=== PATIENT | female | born 1980 | race Caucasian/White ===

== ENCOUNTER 2018-04-13 07:39 | Emergency (ER) | payer OTHER ==
[~2018-04-13] VITALS: Ht 167.6 cm; Wt 69.7 kg
[~2018-04-13 07:39] MED LIST: BCPILLS PO
[2018-04-13 07:40] VITALS: TEMP 36.8; Ht 167.6 cm; Wt 69.7 kg
[2018-04-13] MEDS ORDERED: SODIUM CHLORIDE 0.9% 1000ML 1,000 ML IV STA (07:49)
[2018-04-13] MEDS ORDERED: SODIUM CHLORIDE 0.9% 500ML 500 ML IV STA (07:49)
[2018-04-13 08:19] LABS: BASO % 0.7 %; BASO ABS # 0.03 K/uL (0-0.2); EOS % 0.5 %; EOS ABS # 0.02 K/uL (0-0.5); IG# 0.01 K/uL (0.00-0.02); LYMPH % 35.3 %; MEAN CORPUSCULAR HEMOGLOBIN 29.4 pg (25-34); MEAN CORPUSCULAR HGB CONC 34.2 g/dl (32-36); MONO % 10.6 %; MONO ABS # 0.45 K/uL (0.11-0.59); NEUT % 52.7 %; NEUT ABS # 2.24 K/uL (1.4-6.5); PLATELET COUNT 215 K/uL (130-400); RED CELL DISTRIBUTION WIDTH CV 13.2 % (11.5-14.5); RED CELL DISTRIBUTION WIDTH SD 41.6 fL (36.4-46.3); WHITE BLOOD COUNT 4.25 K/uL (4.8-10.8)
--- NOTE | 2018-04-13 08:24 | EMERGENCY ROOM VISIT NOTE ---
History Report prepared by Mushtaq: Mitchell Jara Under the Supervision of: Dr. Allison Jimenez M.D. First contact with patient: 07:48 Chief Complaint: TACHYCARDIA Stated Complaint: RACING HEART History of Present Illness The patient is a 37 year old female who presents to the Emergency Room with complaints of intermittent tachycardic heart rates and palpitations that she has been experiencing for the past 3 months. The patient describes her palpitations as her heart "flip flopping" in her chest. The patient notes that this morning her heart rate was 120+ while she was at rest. This morning she also felt lightheaded, dizzy, and "hot" when her heart was racing. She denies any alcohol use. The patient did note that she was started on a thyroid medication a few months ago, which she stopped 4 weeks ago. She thought the thyroid medication could be causing the palpitations, but since stopping the medication there has not been any change. She stopped taking her control this month due to insurance issues. Source of History: patient Onset: 3 months Position: chest Quality: other (palpitations) Timing: intermittent Associated Symptoms: + fevers, + diaphoresis (Dizzy/lightheaded) Review of Systems See HPI for pertinent positives & negatives. A total of 10 systems reviewed and were otherwise negative. Past Medical & Surgical Medical Problems: (1) ANXIETY STATE NOS (2) Appendectomy (3) DEPRESS DISORDER-UNSPEC (4) FAM HX-DIABETES MELLITUS (5) FAM HX-OTH KIDNEY DISEASES (6) FAMILY HISTORY OF OTHER CARDIOVASCULAR DISEASES (7) FAMILY HISTORY OF OTHER CARDIOVASCULAR DISEASES (8) FAMILY HX-CONDITION NEC (9) FAMILY HX-MALIGNANCY NOS (10) IRON DEFIC ANEMIA NOS (11) PAP SMEAR CERV W ATYP SQUAMOUS CELLS OF UNDET SIGNIF ASC-US Family History Cancer Diabetes mellitus Heart disease Hypertension Lung disease Social History Smoking Status: Former Smoker Alcohol Use: none Drug Use: none Marital Status: single Housing Status: lives with family Occupation Status: unemployed Current/Historical Medications Scheduled Probiotic Product (Probiotic), 1 TAB PO DAILY Scheduled PRN Cyclobenzaprine Hcl (Flexeril), 10 MG PO UD PRN for Muscle Spasms Allergies Coded Allergies: Sulfamethoxazole w/Trimethoprim (Unverified Allergy, Severe, THRUSH IN MOUTH, 04/13/18) Physical Exam Vital Signs Date Time Temp Pulse Resp B/P (MAP) Pulse Ox O2 Delivery O2 Flow Rate FiO2 04/13/18 10:15 86 16 126/70 98 04/13/18 09:24 76 16 97 Room Air 04/13/18 08:48 92 18 124/75 98 Room Air 04/13/18 08:01 91 04/13/18 07:57 Room Air 04/13/18 07:57 Room Air 04/13/18 07:53 97 18 147/91 98 Room Air 04/13/18 07:40 36.8 111 18 134/77 100 Room Air Physical Exam Vital signs reviewed. General: Well-appearing young female, in no significant distress. HEENT: No scleral icterus, PERRLA, neck supple. Atraumatic. Cardiovascular: Regular rate and rhythm, no extra sounds. Pulmonary: Clear to auscultation bilaterally, normal work of breathing. Abdomen: Soft, nontender, nondistended, positive bowel sounds. Musculoskeletal: Atraumatic, no peripheral edema. Neurologic: Patient awake alert and oriented x 3. Skin: Warm, dry, no rash Medical Decision & Procedures ER Provider Diagnostic Interpretation: Radiology results as stated below per my review and radiologist interpretation: CHEST ONE VIEW PORTABLE HISTORY: tachycardia COMPARISON: Chest 09/01/2011. FINDINGS: The lungs are clear. Cardiac silhouette is normal in size. No pleural effusions. No pneumothorax. IMPRESSION: No acute process. Electronically signed by: Lionel Garcia M.D. 04/13/2018 8:32 AM Dictated Date/Time: 04/13/2018 8:28 AM Laboratory Results 04/13/18 08:05 Red Blood Count 4.42, Mean Corpuscular Volume 86.0, Mean Corpuscular Hemoglobin 29.4, Mean Corpuscular Hemoglobin Concent 34.2, Mean Platelet Volume 9.0, Neutrophils (%) (Auto) 52.7, Lymphocytes (%) (Auto) 35.3, Monocytes (%) (Auto) 10.6, Eosinophils (%) (Auto) 0.5, Basophils (%) (Auto) 0.7, Neutrophils # (Auto ) 2.24, Lymphocytes # (Auto) 1.50, Monocytes # (Auto) 0.45, Eosinophils # (Auto ) 0.02, Basophils # (Auto) 0.03 04/13/18 08:05 Test 04/13/18 08:05 04/13/18 08:14 White Blood Count 4.25 K/uL (4.8-10.8) Red Blood Count 4.42 M/uL (4.2-5.4) Hemoglobin 13.0 g/dL (12.0-16.0) Hematocrit 38.0 % (37-47) Mean Corpuscular Volume 86.0 fL (80-100) Mean Corpuscular Hemoglobin 29.4 pg (25-34) Mean Corpuscular Hemoglobin Concent 34.2 g/dl (32-36) Platelet Count 215 K/uL (130-400) Mean Platelet Volume 9.0 fL (7.4-10.4) Neutrophils (%) (Auto) 52.7 % Lymphocytes (%) (Auto) 35.3 % Monocytes (%) (Auto) 10.6 % Eosinophils (%) (Auto) 0.5 % Basophils (%) (Auto) 0.7 % Neutrophils # (Auto) 2.24 K/uL (1.4-6.5) Lymphocytes # (Auto) 1.50 K/uL (1.2-3.4) Monocytes # (Auto) 0.45 K/uL (0.11-0.59) Eosinophils # (Auto) 0.02 K/uL (0-0.5) Basophils # (Auto) 0.03 K/uL (0-0.2) RDW Standard Deviation 41.6 fL (36.4-46.3) RDW Coefficient of Variation 13.2 % (11.5-14.5) Immature Granulocyte % (Auto) 0.2 % Immature Granulocyte # (Auto) 0.01 K/uL (0.00-0.02) Anion Gap 4.0 mmol/L (3-11) Est Creatinine Clear Calc Drug Dose 85.8 ml/min Estimated GFR () 102.9 Estimated GFR (Non- 88.8 BUN/Creatinine Ratio 11.7 (10-20) Calcium Level 8.6 mg/dl (8.5-10.1) Magnesium Level 1.8 mg/dl (1.8-2.4) Total Bilirubin 0.6 mg/dl (0.2-1) Direct Bilirubin 0.2 mg/dl (0-0.2) Aspartate Amino Transf (AST/SGOT) 19 U/L (15-37) Alanine Aminotransferase (ALT/SGPT) 20 U/L (12-78) Alkaline Phosphatase 75 U/L (45-117) Total Protein 7.3 gm/dl (6.4-8.2) Albumin 3.6 gm/dl (3.4-5.0) Thyroid Stimulating Hormone (TSH) 4.020 uIu/ml (0.300-4.500) Free Thyroxine 1.05 ng/dl (0.80-1.60) Free Triiodothyronine 3.48 pg/ml (2.30-4.20) Bedside D-Dimer 188 ng/mlFEU (0-450) Laboratory results per my review. Medications Administered Medications (Trade) Dose Ordered Sig/Jeff Route Start Time Stop Time Status Last Admin Dose Admin Sodium Chloride 500 ml @ 999 mls/hr Q31M STAT IV 04/13/18 07:49 04/13/18 08:19 DC 04/13/18 08:08 999 MLS/HR ECG Per My Interpretation Indication: palpitations, tachycardia Rate (beats per minute): 98 Rhythm: sinus rhythm Findings: PAC, other (Possible previous anterior infarct, no BETTIE/STD) ED Course 0757: Past medical records reviewed. The patient was evaluated in room A2. A complete history and physical examination was performed. 0749: Ordered Sodium Chloride 1000 ml @ 150 mls/hr IV, Sodium Chloride 500 ml @ 999 mls/hr IV 1005; Upon reevaluation, the patient appeared to have improvement of her symptoms. I discussed findings with her. She verbalized agreement of the treatment plan. The patient was discharged home. Medical Decision Differential diagnosis: Etiologies such as premature contractions, electrolyte abnormality, cardiac dysrhythmia, thyroid dysfunction, pulmonary embolism, infection, gastrointestinal, as well as others were entertained. This patient was evaluated and appeared to be in no significant distress. The patient has a slight tachycardia just above 100 bpm periodically. IV access was obtained and laboratory work was drawn. Patient was hydrated with normal saline solution. She denies stimulant use. There is no ectopy or significant arrhythmia to explain the rapid rate the patient experienced earlier. Patient' s laboratory work is fairly unrevealing, there is no evidence of electrolyte or metabolic derangement. As this has been recurrent for some time, the patient was prescribed a Holter monitor for outpatient use. The results will be sent to her primary care, she will follow up with her physician within the next 1-2 weeks. Patient will return to the emergency department for worsening of symptoms or any medical concerns. Medication Reconcilliation Current Medication List: was personally reviewed by me Blood Pressure Screening Patient's blood pressure: Normal blood pressure Impression Primary Impression: Tachyarrhythmia Scribe Attestation The scribe's documentation has been prepared under my direction and personally reviewed by me in its entirety. I confirm that the note above accurately reflects all work, treatment, procedures, and medical decision making performed by me. Departure Information Dispostion Home / Self-Care Referrals No Doctor, Assigned (PCP) Forms HOME CARE DOCUMENTATION FORM, IMPORTANT VISIT INFORMATION, WORK / SCHOOL INSTRUCTIONS Patient Instructions My [facility] Additional Instructions Diagnosis: Tachyarrhythmia Please go to the cardiopulmonary lab after discharged for your Holter monitor. Follow-up with Dr. Landis within the next 7-10 days for reevaluation. Drink plenty of clear fluids. Avoid excessive stimulants such as caffeine per Return to the emergency department for worsening of symptoms or any medical concerns.
--- NOTE | 2018-04-13 08:34 | DIAGNOSTIC IMAGING REPORT ---
CHEST ONE VIEW PORTABLE HISTORY: tachycardia COMPARISON: Chest 09/01/2011. FINDINGS: The lungs are clear. Cardiac silhouette is normal in size. No pleural effusions. No pneumothorax. IMPRESSION: No acute process. Electronically signed by: Lionel Garcia M.D. 04/13/2018 8:32 AM Dictated Date/Time: 04/13/2018 8:28 AM
[2018-04-13 08:40] LABS: ALBUMIN 3.6 gm/dl (3.4-5.0); CALCIUM 8.6 mg/dl (8.5-10.1); CREATININE 0.84 mg/dl (0.60-1.20); POTASSIUM 3.8 mmol/L (3.5-5.1); TOTAL PROTEIN 7.3 gm/dl (6.4-8.2)
[2018-04-13] MEDS ORDERED: CYCL10TA6 PO (09:02)
[2018-04-13] MEDS ORDERED: PROB1TAB16 PO (09:02)
[2018-04-13 10:15] VITALS: BP 126/70; PULSE 86; O2SAT 98
== END 2018-04-13 10:35 | disposition home or self-care (01) ==
LOC: C.EDB 07:40 → C.EDA 10:35
DX: R00.0 Tachycardia, unspecified (principal); F41.9 Anxiety disorder, unspecified; F32.9 Major depressive disorder, single episode, unspecified; Z87.891 Personal history of nicotine dependence; Z83.3 Family history of diabetes mellitus; Z84.1 Family history of disorders of kidney and ureter; Z80.9 Family history of malignant neoplasm, unspecified; Z82.49 Family history of ischemic heart disease and other diseases of the circulatory system; Z88.2 Allergy status to sulfonamides